=== PATIENT | male | born 2000 | race Caucasian/White ===

== ENCOUNTER 2024-01-13 09:25 | Emergency (ER) | payer MEDICAID ==
[~2024-01-13] VITALS: Ht 177.8 cm; Wt 88.0 kg
[2024-01-13 10:19] VITALS: BP 124/74; PULSE 84; RESP 14; TEMP 98.2; O2SAT 98
== END 2024-01-13 12:21 | disposition home or self-care (01) ==
LOC: ER 09:25
DX: B07.8 Other viral warts (principal)
CPT/HCPCS: 99281